=== PATIENT | male | born 1950 | race Two or more races ===

== ENCOUNTER → 2016-10-04 | Outpatient (CLI) | payer MEDICARE, MEDICAID ==
[2016-10-04 08:49] LABS: BILIRUBIN, INDIRECT 0.75 mg/dL (0-0.9); BUN 14 mg/dL (7-18)
[2016-10-04 08:55] LABS: GFR (ESTIMATED) 84 ML/MIN (>60)
== END ==
LOC: LAB 07:42
PROVIDERS: Internal Medicine
DX: I25.10 Atherosclerotic heart disease of native coronary artery without angina pectoris (principal); I10 Essential (primary) hypertension; E78.5 Hyperlipidemia, unspecified; G47.33 Obstructive sleep apnea (adult) (pediatric)